=== PATIENT | female | born 1985 ===

== ENCOUNTER 2017-07-11 10:47 | Emergency (ER) | payer SELFPAY ==
[2017-07-11 10:58] VITALS: RESP 18; TEMP 98.1; BMI 22.2
[2017-07-11 12:03] LABS: RBC URINE < 1 /hpf (0-3); URINE BILIRUBIN NEGATIVE (NEGATIVE); URINE BLOOD NEGATIVE (NEGATIVE); URINE COLOR Colorless (YELLOW); URINE GLUCOSE (UA) NORMAL (Normal); URINE KETONE NEGATIVE (NEGATIVE); URINE LEUKOCYTE ESTERASE TRACE Leu/uL (Negative); URINE PROTEIN NEGATIVE (NEGATIVE); URINE UROBILINOGEN NORMAL mg/dL (0.2-1.0)
--- NOTE | 2017-07-11 12:48 | C.PDOC ---
History Of Present Illness 32 year old female with no significant PMHx presents to the ED for evaluation of subrapubic pain for 3 days. Patient reports pain is associated with white/ brownish discharge and vaginal discomfort. Patient notes LMP was 06/19/2017. Pt sts, similar symptoms before menstruation last months that gradually reoccur right after menstrual completed . Patient denies fever, chills, headache, dizziness, neck pain, CP, SOB, dyspnea, nausea, vomiting, diarrhea, UTI sx, or other complaints at this time. Time Seen by Provider: 07/11/17 11:12 Chief Complaint (Nursing): Female Genitourinary History Per: Patient History/Exam Limitations: no limitations Onset/Duration Of Symptoms: Days (3 days ) Current Symptoms Are (Timing): Still Present Quality Of Discomfort: "Pain" Associated Symptoms: denies: Fever, Chills, Nausea, Vomiting, Diarrhea Alleviating Factors: None Recent travel outside of the [place]: No Abnormal Vaginal Bleeding: No Past Medical History Reviewed: Historical Data, Nursing Documentation, Vital Signs Vital Signs: Last Vital Signs Temp 98.1 F 07/11/17 13:15 Pulse 92 H 07/11/17 13:15 Resp 18 07/11/17 13:15 BP 120/71 07/11/17 13:15 Pulse Ox 99 07/11/17 13:15 - Medical History PMH: Diabetes, Hyperthyroidism, Pneumonia (LLL PNEUMONIA W/ ATYPICAL CHEST PAIN) Family History: States: Unknown Family Hx - Social History Hx Tobacco Use: No Hx Alcohol Use: No Hx Substance Use: No - Immunization History Hx Tetanus Toxoid Vaccination: No Hx Influenza Vaccination: No Hx Pneumococcal Vaccination: No Review Of Systems Constitutional: Negative for: Fever, Chills Cardiovascular: Negative for: Chest Pain, Palpitations Respiratory: Negative for: Cough, Shortness of Breath Gastrointestinal: Positive for: Abdominal Pain (suprapubic pain). Negative for : Nausea, Vomiting, Diarrhea Genitourinary: Positive for: Vaginal Discharge, Other (vaginal discomfort) Musculoskeletal: Negative for: Back Pain Physical Exam - Physical Exam Appears: Non-toxic, No Acute Distress Skin: Warm, Dry, No Rash Head: Normacephalic Eye(s): bilateral: PERRL Oral Mucosa: Moist Throat: No Erythema Neck: Supple Chest: Symmetrical, No Deformity Cardiovascular: Rhythm Regular, No Murmur Respiratory: No Decreased Breath Sounds, No Accessory Muscle Use, No Rales, No Rhonchi, No Stridor, No Wheezing Gastrointestinal/Abdominal: Soft, No Tenderness, No Distention, No Guarding, No Rebound Back: No CVA Tenderness Pelvic: Vaginal Discharge (thick white/brownish "cottage-cheese" like discharge) , No Cervical Motion Tenderness, No Adnexal Tenderness Extremity: No Pedal Edema, No Swelling Neurological/Psych: Oriented x3, Normal Speech ED Course And Treatment - Laboratory Results Urine POC: Negative O2 Sat by Pulse Oximetry: 97 (RA) Pulse Ox Interpretation: Normal Progress Note: UA and UCG was ordered. ON RE-EVAL, PT IS AFEBRILE, HEMODYNAMICALY STABLE. NON-TOXIC, TOLERATE PO WELL IN ED. ABD; BENIGN, (-) GUARDING, (-) REBOUND, (-) LOCALIZED TENDERNESS. PELVIC EXAM C/W CANDIDIAL VULVOVAGINITIS. UA RESULTS REVIEW AND APPEARS NORMAL. PREG (-). PT ADVISED ON COURSE OF DS. REF. TO f/U WITH FURNACE OPERATOR OIL OR GAS IN 2-3 DAYS FOR RE-EAVL. RETURN TO ED IF ANY WORSENING OR NEW CHANGES. Disposition - Disposition Referrals: [facility] [Outside] [facility] [Outside] Disposition: HOME/ ROUTINE Disposition Time: 12:03 Condition: STABLE Additional Instructions: TAKE MEDICATION PRESCRIBED FOLLOW UP WITH FURNACE OPERATOR OIL OR GAS IN 2-3 DAYS FOR RE-EVALUATION. RETURN TO ED IF ANY WORSENING OR NEW CHANGES. Prescriptions: Miconazole [Miconazole 7] 1 supp VG HS #7 sup Instructions: Vulvovaginal Candidiasis (ED) Forms: [employer] (Moldovan) Print Language: SOMALI - Clinical Impression Clinical Impression: Vulvovaginal candidiasis - PA / ACQUISITION MANAGER / Resident Statement MD/DO has reviewed & agrees with the documentation as recorded. - Scribe Statement The provider has reviewed the documentation as recorded by the Scribe Penny Vasquez All medical record entries made by the Morenitaibbridgett were at my direction and personally dictated by me. I have reviewed the chart and agree that the record accurately reflects my personal performance of the history, physical exam, medical decision making, and the department course for this patient. I have also personally directed, reviewed, and agree with the discharge instructions and disposition.
--- NOTE | 2017-07-11 12:49 | C.PDOC ---
Time Seen by Provider: 07/11/17 11:12 Chief Complaint (Nursing): Female Genitourinary Past Medical History Vital Signs: Last Vital Signs Temp 98.1 F 07/11/17 10:57 Pulse 95 H 07/11/17 10:57 Resp 18 07/11/17 10:57 BP 124/73 07/11/17 10:57 Pulse Ox 97 07/11/17 10:57 - Medical History PMH: Diabetes, Hyperthyroidism, Pneumonia (LLL PNEUMONIA W/ ATYPICAL CHEST PAIN) - Social History Hx Tobacco Use: No Hx Alcohol Use: No Hx Substance Use: No - Immunization History Hx Tetanus Toxoid Vaccination: No Hx Influenza Vaccination: No Hx Pneumococcal Vaccination: No ED Course And Treatment - Laboratory Results Urine POC: Negative O2 Sat by Pulse Oximetry: 97 Pulse Ox Interpretation: Normal Progress Note: ON RE-EVAL, PT IS AFEBRILE, HEMODYNAMICALY STABLE. NON-TOXIC, TOLERATE PO WELL IN ED. ABD; BENIGN, (-) GUARDING, (-) REBOUND, (-) LOCALIZED TENDERNESS. PELVIC EXAM C/W CANDIDIAL VULVOVAGINITIS. UA RESULTS REVIEW AND APPEARS NORMAL. PREG (-). PT ADVISED ON COURSE OF DS. REF. TO f/U WITH AREA SUPERVISOR IN 2-3 DAYS FOR RE-EAVL. RETURN TO ED IF ANY WORSENING OR NEW CHANGES. Disposition Counseled Patient/Family Regarding: Diagnosis, Need For Followup, Rx Given - Disposition [facility]errals[facility] [[facility]] [facility] [Outside] Disposition: HOME/ ROUTINE Disposition Time: 12:03 Condition: STABLE Additional Instructions: TAKE MEDICATION PRESCRIBED FOLLOW UP WITH AREA SUPERVISOR IN 2-3 DAYS FOR RE-EVALUATION. RETURN TO ED IF ANY WORSENING OR NEW CHANGES. Prescriptions: Miconazole [Miconazole 7] 1 supp VG HS #7 sup Instructions: Vulvovaginal Candidiasis (ED) Forms: [employer] (Lebanese) Print Language: SAMMARINESE - Clinical Impression Clinical Impression: Vulvovaginal candidiasis
[2017-07-11 13:16] VITALS: BP 120/71; PULSE 92
[2017-07-12 10:05] VITALS: O2SAT 97
== END 2017-07-11 13:16 | disposition home or self-care (01) ==
LOC: C.ER 10:47
DX: B37.3 Candidiasis of vulva and vagina (principal)